=== PATIENT | female | born 1985 | race African-American/Black ===

== ENCOUNTER 2016-08-31 09:18 | Emergency (ER) | payer OTHER ==
[~2016-08-31 09:18] MED LIST: RANITIDINE HCL150 M1 PO
[2016-08-31 10:07] LABS: AMPHETAMINE NEG (NEG); BARBITURATES NEG (NEG); BENZODIAZEPINES NEG (NEG); COCAINE NEG (NEG); MARIJUANA POS (NEG); OPIATES POS (NEG); TRICYCLIC ANTIDEPRESSANTS NEG (NEG); U METHADONE NEG (NEG)
[2016-08-31 10:19] LABS: BASOPHIL% 0.5 % (0-2.5); EOSINOPHIL# 0.2 X10e3 (0-0.7); EOSINOPHIL% 4.6 % (0.0-7.0); HEMATOCRIT 37.6 % (35.0-45.0); HEMOGLOBIN 12.1 gm/dL (12.0-16.0); LYMPHOCYTE# 1.8 X10e3 (1.0-3.5); LYMPHOCYTE% 40.6 % (17.0-45.0); MEAN CELL VOLUME 88.6 FL (83-96); MEAN CORPUSCULAR HEMOGLOBIN 28.4 PG (28-34); MEAN CORPUSCULAR HGB CONC 32.1 g/dL (30-36); MEAN PLATELET VOLUME 8.6 FL (6.5-11.5); MONOCYTE# 0.3 X10e3 (0-1.0); MONOCYTE% 6.4 % (3.0-12.0); NEUTROPHIL# 2.1 X10e3 (1.5-7.1); NEUTROPHIL% 47.9 % (40-75); PLATELET COUNT 418 X10e3 (140-420); RED BLOOD COUNT 4.25 X10e (3.90-5.30); RED CELL DISTRIBUTION WIDTH 14.4 % (11.0-15.5); WHITE BLOOD COUNT 4.4 X10e3 (4.0-10.5)
[2016-08-31 10:25] LABS: DIFF IND NO
[2016-08-31 10:33] LABS: BILIRUBIN, DIRECT 0.1 mg/dL (0.0-0.2); BILIRUBIN,INDIRECT 0.2 mg/dL (0.0-0.9); BILIRUBIN,TOTAL 0.3 mg/dL (0.2-2.0); BUN/CREATININE RATIO 11.66; CALCIUM SERUM 9.1 mg/dL (8.4-10.2); CREATININE SERUM 0.6 mg/dL (0.6-1.4); GLOM FILT RATE Estimated 141.8 mL/min (>60); POTASSIUM 3.8 mmol/L (3.5-5.1); PROTEIN TOTAL SERUM 7.5 g/dL (6.0-8.3)
== END 2016-08-31 11:11 | disposition home or self-care (01) ==
LOC: SED 09:18
PROVIDERS: Emergency Medicine
DX: R10.84 Generalized abdominal pain (principal); F17.200 Nicotine dependence, unspecified, uncomplicated; Z90.49 Acquired absence of other specified parts of digestive tract
CPT/HCPCS: 36415; 80048; 80076; 80307; 82150; 82270; 83690; 84703; 85025; 96374; 96375; 99284; J2270; J2405

== ENCOUNTER 2016-10-29 19:17 | Emergency (ER) | payer OTHER ==
--- NOTE | ~2016-10-29 | CR253 ---
[facility] A Service of [facility] & [facility] RADIOLOGY TEXT RESULTS PATIENT: HALINA BATRES LOCATION: SED : 87 UNIT #: [id number] AGE: [address]: BLAYNE POPE SEX: F ORDER DR: [id number] [address] [address] [id number] E MR#: [id number] Acc #: [id number] NAME: HALINA BATRES : 1985 SEX: F STUDY DATE/TIME: 10/29/2016 20:17 UNIT: SED ROOM: STUDY DESCRIPTION: CR Tibia and Fibula 2 Views Rt Attending Physician: Blayne Pope Aprn Ordering Physician: Blayne Pope Aprn Primary Care Physician: No Primary Care Physician MEDICAL IMAGING REPORT This report is preliminary unless electronic signature is present. EXAM Tib-fib series on the right, 10/29/16. INDICATION Lower leg pain that began just prior to arrival tonight "missed step on a step." Calf and lower leg pain. TECHNIQUE Two views of the right tib-fib. COMPARISON No comparisons. FINDINGS There is mild lateral soft tissue swelling but no acute fracture. Soft tissues unremarkable. IMPRESSION 1. Negative. Dictated by... Ricky Rivas M.D. THIS IS AN ELECTRONICALLY VERIFIED REPORT Ricky Rivas M.D. at 10/30/2016 11:25 AM Dinorah TD: 10/29/2016 22:33 JOB #: [id number] MEDICAL IMAGING REPORT Page 1 of 1
== END 2016-10-29 22:16 | disposition home or self-care (01) ==
LOC: SED 19:17
DX: S86.111A Strain of other muscle(s) and tendon(s) of posterior muscle group at lower leg level, right leg, initial encounter (principal); K21.9 Gastro-esophageal reflux disease without esophagitis; F17.210 Nicotine dependence, cigarettes, uncomplicated; Z79.899 Other long term (current) drug therapy; W18.49XA Other slipping, tripping and stumbling without falling, initial encounter
CPT/HCPCS: 73590; 99283